=== PATIENT | female | born 2005 | race Two or more races ===

== ENCOUNTER 2025-02-05 15:57 | Emergency (ER) | payer MEDICAID, OTHER ==
[~2025-02-05] VITALS: Ht 154.9 cm; Wt 83.2 kg
[2025-02-05 16:10] VITALS: BP 112/73; PULSE 76; RESP 13; TEMP 98.3; O2SAT 97
--- NOTE | 2025-02-05 18:44 | DVH ---
CLINICAL INDICATION: pain TECHNIQUE: 2 radiographic views of the right hand were obtained. Comparison: None FINDINGS/IMPRESSION: Finger nails with radiopaque decorations noted on the thumb index finger and 5th digit. There are no finger nails noted on the 3rd and 4th digits. Bony alignment appears normal No fractures or dislocations.
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
== END 2025-02-06 00:39 | disposition home or self-care (01) ==
LOC: ER 15:57
DX: S69.91XA Unspecified injury of right wrist, hand and finger(s), initial encounter (principal); X58.XXXA Exposure to other specified factors, initial encounter; Y93.89 Activity, other specified; Y92.89 Other specified places as the place of occurrence of the external cause; Y99.0 Civilian activity done for income or pay
CPT/HCPCS: 73130